=== PATIENT | female | born 1935 | race Caucasian/White ===

== ENCOUNTER 2022-04-04 14:24 | Inpatient (IN) | payer MEDICARE, BC ==
[~2022-04-04] VITALS: Ht 167.6 cm; Wt 81.6 kg
[~2022-04-04 14:24] MED LIST: ATOR10TA PO; DIVA-78 PO; FURO20TA4 PO; LORA0.5T PO; POTA10CA43 PO; QUET100T PO; TOLT2CAP PO; ZOLP10TA6 PO
--- NOTE | 2022-04-04 14:25 | NUR ---
BIB [facility] from home with c/o SOB, cough and fever. Per EMS they were called by pt's caregiver. Pt arrives on O2 4L via N/C with oxygen saturation of 94%, per EMS pt is on O2 4L via N/C at home. The ER is saturated and there are no open beds. Pt is waiting in the EMS gurney in the ER hallway.
[2022-04-04] MEDS ORDERED: IV NORMAL SALINE 500 ML BAG IV ONE (16:00)
[2022-04-04 16:21] LABS: HEMATOCRIT 37.9 % (31.2-41.9); MEAN CORPUSCULAR HEMOGLOBIN 28.6 uug (24.7-32.8); MEAN CORPUSCULAR VOLUME 85.6 fL (75.5-95.3); PLATELET COUNT (AUTO) 209 K/uL (179-408)
[2022-04-04 16:29] LABS: BAND % (MANUAL) 2 % (0-10)
[2022-04-04 16:30] LABS: EOSINOPHILS % (MANUAL) 1 % (0-8); LYMPHOCYTES % (MANUAL) 26 % (20-40); MONOCYTES % (MANUAL) 16 % (2-10)
[2022-04-04 16:32] LABS: NEUTROPHILS % (MANUAL) 55 % (42-75)
[2022-04-04 16:34] LABS: CARBON DIOXIDE 29 mmol/L (21-32); CHLORIDE 100 mmol/L (98-107); CREATININE 0.9 mg/dL (0.6-1.3); GLUCOSE 118 mg/dL (74-106); POTASSIUM 3.5 mmol/L (3.5-5.1); UREA NITROGEN, BLOOD 13 mg/dL (7-18)
[2022-04-04 16:48] LABS: ALANINE AMINOTRANSFERASE 9 U/L (14-59); ALKALINE PHOSPHATASE 94 U/L (50-136); ASPARTATE AMINOTRANSFERASE 11 U/L (15-37); BILIRUBIN,DIRECT 0.1 mg/dL (0.0-0.2); BILIRUBIN,TOTAL 0.3 mg/dL (0.2-1.0); TOTAL PROTEIN, SERUM 6.6 g/dL (6.4-8.2)
[2022-04-04] MEDS ORDERED: IV NORMAL SALINE 1000 ML BAG IV ONE (17:45)
[2022-04-04] MEDS ORDERED: PIPERACILLIN SODIUM/TAZOBACTAM 3.375 G in IV DEXTROSE 5% 50 ML IV ONE (18:00)
[2022-04-04] MEDS ORDERED: VANCOMYCIN IV 1,000 MG in IV DEXTROSE 5% 250 ML IV ONE (18:00)
[2022-04-04] MEDS ORDERED: PIPERACILLIN/TAZOBACTAM/D5W 50 ML IV ONE (18:13)
[2022-04-04] MEDS ORDERED: VANCOMYCIN IV 200 ML ONE (18:13)
[2022-04-04] MEDS ORDERED: REMEDY ESSENTIAL ZINC PASTE 113 GM TP PRN (18:30)
[2022-04-04] MEDS ORDERED: ACETAMINOPHEN 325 MG TABLET PO PRN (18:30)
[2022-04-04] MEDS ORDERED: ONDANSETRON 4 MG/2 ML VIAL IV PRN (18:30)
[2022-04-04] MEDS ORDERED: CEFTRIAXONE 1 G in IV DEXTROSE 5% 50 ML IV SCH (18:30)
[2022-04-04] MEDS ORDERED: ENOXAPARIN SODIUM 40 MG/0.4 ML DISP.SYRIN SQ SCH (18:30)
[2022-04-04] MEDS ORDERED: AZITHROMYCIN IV 500 MG in IV DEXTROSE 5% 250 ML IV SCH (18:30)
[2022-04-04] MEDS ORDERED: MAGNESIUM HYDROXIDE 30 ML LIQUID UDC PO PRN (18:30)
[2022-04-04] MEDS: IPRATROPIUM BROMIDE 0.5 MG/2.5 ML NEBU NEB SCH (20:41)
[2022-04-04] MEDS ORDERED: DIVALPROEX 500 MG TABLET.DR PO SCH (21:00)
[2022-04-04] MEDS ORDERED: QUETIAPINE FUMARATE 100 MG TABLET PO SCH (21:00)
[2022-04-04] MEDS: ATORVASTATIN 10 MG TABLET PO SCH (21:00)
[2022-04-04] MEDS ORDERED: ATORVASTATIN 20 MG TABLET ONE (23:49)
[2022-04-04] MEDS ORDERED: QUETIAPINE FUMARATE 100 MG TABLET ONE (23:49)
--- NOTE | 2022-04-05 00:14 | NUR ---
Called for bed, spoke with Eliane CHAVEZ. patient will be transfered to ROOM [id number] TELE
[2022-04-05] MEDS ORDERED: IPRATROPIUM BROMIDE 0.5 MG/2.5 ML NEBU ONE (00:27)
[2022-04-05] MEDS: IPRATROPIUM BROMIDE 0.5 MG/2.5 ML NEBU NEB SCH ×6 (00:28→21:24)
[2022-04-05 01:30] VITALS: BP 137/53
--- NOTE | 2022-04-05 01:30 | NUR ---
Patient arrived on tele unit from ER by a fan at this time. AAOx2-3. Is confused at times. No signs of distress or c/o pain at this time. Is on 4L NC, saturating 97%. Is SR on tele monitor, HR 92. Right IV site is intact and patent, hep lock. Admission and initial assessment completed at this time. Safety and comfort measures enforced.
--- NOTE | 2022-04-05 01:45 | NUR ---
Pt. admitted to [facility] TELE , under care of Dr. DESIR Belongs List completed Endorsed to Eliane Blank took over care on arrival Clinically stable at the time of transfer.
[2022-04-05] MEDS ORDERED: CEFTRIAXONE 1 G VIAL ONE (03:59)
[2022-04-05] MEDS ORDERED: AZITHROMYCIN 500MG/ D5W 250ML IVPB **ER PYXIS ONLY IV ONE (03:59)
--- NOTE | 2022-04-05 04:53 | NUR ---
All due meds at 1830 on 04/04/22 was not given. Patient was not admitted onto the floor uuntil yet. Charge nurse aware.
--- NOTE | 2022-04-05 04:55 | NUR ---
All due meds at 1830 on 04/04/22 was not given. Patient was not admitted onto the floor until 0130 on 04/05/22. Charge nurse made aware.
[2022-04-05 05:31] VITALS: BP 145/63
[2022-04-05 06:48] LABS: MEAN CORPUSCULAR HEMOGLOBIN 28.5 uug (24.7-32.8); MEAN CORPUSCULAR VOLUME 85.5 fL (75.5-95.3); PLATELET COUNT (AUTO) 201 K/uL (179-408)
[2022-04-05 07:05] LABS: BILIRUBIN,TOTAL 0.3 mg/dL (0.2-1.0); CREATININE 0.8 mg/dL (0.6-1.3); MAGNESIUM 2.4 mg/dL (1.8-2.4); PHOSPHOROUS 3.9 mg/dL (2.5-4.9); POTASSIUM 3.4 mmol/L (3.5-5.1); TOTAL PROTEIN, SERUM 6.1 g/dL (6.4-8.2)
[2022-04-05 07:18] LABS: THYROID STIMULATING HORMONE 1.736 mIU/mL (0.358-3.740)
[2022-04-05 08:22] LABS: NEUTROPHILS % (MANUAL) 0 % (42-75)
[2022-04-05] MEDS ORDERED: AZITHROMYCIN IV 500 MG in IV DEXTROSE 5% 250 ML IV SCH (09:00)
[2022-04-05] MEDS ORDERED: QUETIAPINE FUMARATE 100 MG TABLET PO SCH (09:00)
[2022-04-05] MEDS ORDERED: TOLTERODINE LA 2 MG CAP.SR.24H PO SCH (09:00)
[2022-04-05] MEDS: TOLTERODINE 2 MG TABLET PO SCH (09:36)
[2022-04-05] MEDS: ENOXAPARIN SODIUM 40 MG/0.4 ML DISP.SYRIN SQ SCH (09:41)
[2022-04-05] MEDS: DOXYCYCLINE HYCLATE IV 100 MG in IV DEXTROSE 5% 100 ML IV SCH ×2 (09:41→22:32)
[2022-04-05] MEDS: CEFTRIAXONE 1 G in IV DEXTROSE 5% 50 ML IV SCH (10:24)
[2022-04-05] MEDS ORDERED: POTASSIUM CHLORIDE 20 MEQ POWDER PACKET PO ONE (11:00)
[2022-04-05 11:47] VITALS: BP 127/60
[2022-04-05 16:00] VITALS: BP 135/61
--- NOTE | 2022-04-05 18:00 | NUR ---
Patient was compliant with plan of care. Concerns from spare hand carding was discussed and is aware of situation and is happy to be updated on the patient's status. No signs of distress. On 4L NC. Is A-fibb on tele monitor, HR 98. No c/o pain. Safety and comfort measures maintained.
[2022-04-05 21:16] VITALS: BP 143/66
[2022-04-05] MEDS: DIVALPROEX 250 MG TABLET.DR PO SCH (21:47)
[2022-04-05] MEDS: ATORVASTATIN 10 MG TABLET PO SCH (21:47)
[2022-04-05] MEDS: QUETIAPINE FUMARATE 100 MG TABLET PO SCH (21:48)
[2022-04-06 00:36] VITALS: BP 135/54
[2022-04-06] MEDS: IPRATROPIUM BROMIDE 0.5 MG/2.5 ML NEBU NEB SCH ×7 (00:53→23:30)
[2022-04-06 04:35] VITALS: BP 122/56
[2022-04-06 07:31] LABS: CREATININE 0.7 mg/dL (0.6-1.3); POTASSIUM 3.6 mmol/L (3.5-5.1)
[2022-04-06] MEDS: POTASSIUM CHLORIDE 10 MEQ TAB.PRT.SR PO SCH (08:50)
[2022-04-06] MEDS: FUROSEMIDE 20 MG TABLET PO SCH (08:50)
[2022-04-06] MEDS: ENSURE ENLIVE (VAN) 240 ML LIQUID PO SCH (08:51)
[2022-04-06] MEDS: CEFTRIAXONE 1 G in IV DEXTROSE 5% 50 ML IV SCH (08:51)
[2022-04-06] MEDS: ENOXAPARIN SODIUM 40 MG/0.4 ML DISP.SYRIN SQ SCH (08:53)
[2022-04-06] MEDS ORDERED: FUROSEMIDE 20 MG TABLET PO SCH (09:00)
[2022-04-06] MEDS ORDERED: POTASSIUM CHLORIDE 10 MEQ TAB.PRT.SR PO SCH (09:00)
[2022-04-06] MEDS: TOLTERODINE 2 MG TABLET PO SCH (09:13)
[2022-04-06] MEDS: DOXYCYCLINE HYCLATE IV 100 MG in IV DEXTROSE 5% 100 ML IV SCH ×2 (09:30→21:07)
--- NOTE | 2022-04-06 10:03 | NUR ---
DR GARCIA HERE AND SEEN PATIENT AWARE THAT SHE IS COUGHING WHEN SHE DRINKS AND ALSO C/O PAIN IN THE LEFT SIDE OF HER NECK WITH NEW ORDERS AND NOTED.
[2022-04-06] MEDS: BENZOCAINE/MENTH/CETYLPYRD LOZENGE MM PRN ×2 (11:48→23:17)
[2022-04-06 12:58] VITALS: BP 143/67
[2022-04-06 15:54] VITALS: BP 135/73
--- NOTE | 2022-04-06 18:00 | NUR ---
RESTING QUIETLY DENIES DISCOMFORTS APPETITE IS POOR AWAITING FOR SWALLOW EVAL ORDERED ALL NEEDS ANTICIPATED AND SATISFIED WILL CONTINUE TO OBSERVE.
[2022-04-06 20:07] VITALS: BP 122/58
--- NOTE | 2022-04-06 21:00 | NUR ---
IN BED AWAKE ALERT TO NAME WITH CONFUSSION AND DISORIENTATION ALL NEEDS ANTICIPATED AND SATISFIED ASSISTED WITH REPOSITIONING Q2H AND BETHEL WELL.HL INTACT WITH ATB IN PROGRESS ORDERED WITH NO ADVERSE OR ALLERGIC REACTIONS AT THIS TIME O2 IN PROGRESS WITH NO SOB AT THIS TIME MADE COMFORTABLE WILL CONTINUE TO OBSERVE.
[2022-04-06] MEDS: ATORVASTATIN 10 MG TABLET PO SCH (21:07)
[2022-04-06] MEDS: QUETIAPINE FUMARATE 100 MG TABLET PO SCH (21:07)
[2022-04-06] MEDS: DIVALPROEX 250 MG TABLET.DR PO SCH (21:07)
[2022-04-07 00:38] VITALS: BP 130/57
[2022-04-07 04:10] VITALS: BP 137/75
--- NOTE | 2022-04-07 06:00 | NUR ---
IV SITE INFILTERATED REINSERTED TO HER RIGHT FOREARM WITH ONE ATTEMPT WITH GAUGE 20 WRAPPED WITH KIRLIX MADE COMFORTABLE WILL CONTINUE TO OBSERVE.
[2022-04-07 08:15] LABS: HEMATOCRIT 36.8 % (31.2-41.9); MEAN CORPUSCULAR HEMOGLOBIN 28.3 uug (24.7-32.8); MEAN CORPUSCULAR VOLUME 85.6 fL (75.5-95.3); PLATELET COUNT (AUTO) 264 K/uL (179-408)
[2022-04-07] MEDS: IPRATROPIUM BROMIDE 0.5 MG/2.5 ML NEBU NEB SCH ×5 (08:19→23:37)
[2022-04-07 08:27] LABS: NEUTROPHILS % (MANUAL) 0 % (42-75)
[2022-04-07 08:33] LABS: BILIRUBIN,TOTAL 0.2 mg/dL (0.2-1.0); CREATININE 0.7 mg/dL (0.6-1.3); POTASSIUM 3.8 mmol/L (3.5-5.1)
[2022-04-07] MEDS: TOLTERODINE 2 MG TABLET PO SCH (08:46)
[2022-04-07] MEDS: ENSURE ENLIVE (VAN) 240 ML LIQUID PO SCH (08:47)
[2022-04-07] MEDS: CEFTRIAXONE 1 G in IV DEXTROSE 5% 50 ML IV SCH (08:47)
[2022-04-07] MEDS: ENOXAPARIN SODIUM 40 MG/0.4 ML DISP.SYRIN SQ SCH (08:48)
[2022-04-07] MEDS: REMEDY ESSENTIAL ZINC PASTE 113 GM TP SCH ×2 (08:49→21:12)
[2022-04-07] MEDS: DOXYCYCLINE HYCLATE IV 100 MG in IV DEXTROSE 5% 100 ML IV SCH ×2 (09:43→21:12)
[2022-04-07 11:43] VITALS: BP 137/65
[2022-04-07 15:47] VITALS: BP 118/60
[2022-04-07] MEDS: QUETIAPINE FUMARATE 100 MG TABLET PO SCH (21:11)
[2022-04-07] MEDS: DIVALPROEX 250 MG TABLET.DR PO SCH (21:11)
[2022-04-07] MEDS: ATORVASTATIN 10 MG TABLET PO SCH (21:11)
[2022-04-08] MEDS: IPRATROPIUM BROMIDE 0.5 MG/2.5 ML NEBU NEB SCH ×6 (03:34→23:48)
[2022-04-08 07:51] LABS: MEAN CORPUSCULAR HEMOGLOBIN 28.3 uug (24.7-32.8); MEAN CORPUSCULAR VOLUME 85.8 fL (75.5-95.3); PLATELET COUNT (AUTO) 303 K/uL (179-408)
[2022-04-08 07:55] LABS: ABG BASE EXCESS 2.7 mmol/L; ABG PCO2 45.5 mmHg (35.0-45.0); ABG PH 7.407 (7.350-7.450); ABG PO2 90.7 mmHg (75.0-100.0); ABG SITE LEFT RADIAL; ABG TOTAL HEMOGLOBIN 13.7 G/dL (12.0-16.0); COHb 0.4 % (0.5-1.5)
--- NOTE | 2022-04-08 08:08 | NUR ---
SHIFT NOTE: RECEIVED PT ALERT AND ORIENTED X 1 MEDICATION GIVEN ORDERED NO SIGNS OF ADVERSE REACTION FROM MEDICATION OR RESPIRATORY DISTRESS NOTED. PT TURNED ORDERED. AM CARE GIVEN PT TOLERATED WELL. NO SIGNS OF DISTRESS NOTED WILL CONTINUE TO MONITOR. PT ON TELEMONITOR SHOWING nsr WILL ENDORSE TO AM NURSE.
[2022-04-08 08:13] LABS: CREATININE 0.7 mg/dL (0.6-1.3); MAGNESIUM 2.2 mg/dL (1.8-2.4); PHOSPHOROUS 4.7 mg/dL (2.5-4.9)
[2022-04-08] MEDS: ENSURE ENLIVE (VAN) 240 ML LIQUID PO SCH (09:55)
[2022-04-08] MEDS: POTASSIUM CHLORIDE 10 MEQ TAB.PRT.SR PO SCH (09:55)
[2022-04-08] MEDS: CEFTRIAXONE 1 G in IV DEXTROSE 5% 50 ML IV SCH (09:55)
[2022-04-08] MEDS: FUROSEMIDE 20 MG TABLET PO SCH (09:55)
[2022-04-08] MEDS: TOLTERODINE 2 MG TABLET PO SCH (09:55)
[2022-04-08] MEDS: REMEDY ESSENTIAL ZINC PASTE 113 GM TP SCH ×2 (09:56→21:02)
[2022-04-08] MEDS: ENOXAPARIN SODIUM 40 MG/0.4 ML DISP.SYRIN SQ SCH (09:56)
[2022-04-08] MEDS: DOXYCYCLINE HYCLATE IV 100 MG in IV DEXTROSE 5% 100 ML IV SCH (10:00)
[2022-04-08 12:05] VITALS: BP 122/59
[2022-04-08 16:17] VITALS: BP 136/63
[2022-04-08 20:40] VITALS: BP 108/54
[2022-04-08] MEDS: ATORVASTATIN 10 MG TABLET PO SCH (21:00)
[2022-04-08] MEDS: QUETIAPINE FUMARATE 100 MG TABLET PO SCH (21:00)
[2022-04-08] MEDS: DIVALPROEX 250 MG TABLET.DR PO SCH (21:00)
[2022-04-09 00:27] VITALS: BP 100/58
[2022-04-09] MEDS: IPRATROPIUM BROMIDE 0.5 MG/2.5 ML NEBU NEB SCH ×4 (03:13→15:15)
[2022-04-09 04:00] VITALS: BP 104/56
--- NOTE | 2022-04-09 06:30 | NUR ---
Patient slept well, no acute distress noted. Denies chest pain. Controlled A.fib on tele. RFA IV access intact and patent. Needs assessed and attended to.
[2022-04-09] MEDS: ENOXAPARIN SODIUM 40 MG/0.4 ML DISP.SYRIN SQ SCH (08:46)
[2022-04-09] MEDS: TOLTERODINE 2 MG TABLET PO SCH (08:46)
[2022-04-09] MEDS: REMEDY ESSENTIAL ZINC PASTE 113 GM TP SCH (08:48)
[2022-04-09] MEDS: ENSURE ENLIVE (VAN) 240 ML LIQUID PO SCH (08:48)
[2022-04-09 11:32] VITALS: BP 121/58
--- NOTE | 2022-04-09 14:13 | NUR ---
DR DESIR HERE SEEN PATIENT WITH ORDER TO DISCHARGE TO THE HALF-WAY BUT PER THE SECONDARY MARKET MANAGER WANTS PATIENT TO BE DISCHARGED HOME AND STATED HAS CARE GIVERS READY TO CARE FOR PATIENT CALLED THE [facility] [employer]OURCES OFFICER JAMIE WILL ARRANGE TRANSPORTATION FOR PATIENT TO GO HOME ALSO GAVE JAMIE THE PHON NUMBER OF ART HE IS THE ONE RESPONSIBLE AND TAKES CARE OF PATIENTS AFFAIRS AND SHE STATED WILL CALL HIM
--- NOTE | 2022-04-09 14:19 | NUR ---
PER JAMIE PATIENT WILL BE PICKED UP AT ABOUT 1530 TODAY.
[2022-04-09 15:30] VITALS: BP 117/58
--- NOTE | 2022-04-09 16:15 | NUR ---
[facility] HERE AND PATIENT DISCHARGED TO HER HOME IN SATISFACTORY CONDITION WITH DISCHARGE INSTRUCTIONS AND ALL HER PERSONAL BELONGINGS WAS INSTRUCTED TO CALL FOR A FOLLOW UP APPOINTMENT WITH HER PRIMARY DOCTOR WITHIN THE NEXT ONE TO TWO WEEKS AND THEY EXPRESSED UNDERSTANDING PATIENT HAS OWN IN HOME OXYGEN.
== END 2022-04-09 16:15 | disposition home or self-care (01) | DRG 189 ==
LOC: ER 14:24 → TELE3 22:00 → MEDSURG3 04-09 08:52
PROVIDERS: ADMIT Internal Medicine; ATTEND Internal Medicine
DX: J96.21 Acute and chronic respiratory failure with hypoxia (principal); I50.32 Chronic diastolic (congestive) heart failure; J45.901 Unspecified asthma with (acute) exacerbation; R65.10 Systemic inflammatory response syndrome (SIRS) of non-infectious origin without acute organ dysfunction; J20.9 Acute bronchitis, unspecified; E66.9 Obesity, unspecified; E87.6 Hypokalemia; E88.09 Other disorders of plasma-protein metabolism, not elsewhere classified; Z96.651 Presence of right artificial knee joint; M19.90 Unspecified osteoarthritis, unspecified site; F32.A Depression, unspecified; Z68.29 Body mass index [BMI] 29.0-29.9, adult; Z20.822 Contact with and (suspected) exposure to COVID-19; F29 Unspecified psychosis not due to a substance or known physiological condition; E78.5 Hyperlipidemia, unspecified
CPT/HCPCS: 36415; 36600; 70030-TC; 70450; 71045; 83605; 83735; 84100; 84443; 84484; 85025; 87040; 87400; 93005; 93307; 94640; A4663; G0378; J0456; J0696; J1650; J2543; J3370; J3490; J3590; J7040; J7050